=== PATIENT | male | born 1990 | race Caucasian/White ===

== ENCOUNTER 2024-10-12 20:25 | Emergency (ER) | payer MEDICAID, SELFPAY ==
[2024-10-12 20:27] VITALS: BMI 23.0
[2024-10-12 20:55] VITALS: BP 121/74; PULSE 79; RESP 20; TEMP 37.2; O2SAT 99
--- NOTE | 2024-10-12 21:07 | XR_ITS ---
Examination: CT abdomen and pelvis without contrast. Coronal 3-D reconstructions. Sagittal 2-D reconstructions. Date and time of exam:October 12, 2024 1138 hours INDICATIONS: Onset left-sided flank pain today CTDI: vol (mGy): 6.72 DLP: (mGycm): 398 Technique: Axial images of the abdomen have been obtained, 3 mm slice thickness Intravenous contrast material has not been administered. Low dose protocols were performed. One or more of the following dose reduction techniques were used; automated exposure control, adjustment of the mA and/or KV according to patient size, use of iterative reconstruction technique. Findings: No focal liver or splenic lesions Contracted gallbladder No pancreatic or adrenal mass No renal or ureteral calculi 10 mm posterior left probable renal cyst Aorta normal size Small lymph nodes in the mesentery in the lower right abdomen Normal appendix Urinary bladder wall thickening up to 7 mm No prostatomegaly IMPRESSION: No renal or ureteral calculi, no hydronephrosis Normal appendix No bladder calculi Bladder wall thickening up to 7 mm, consider cystitis
[2024-10-12 21:59] LABS: Basophils # (Auto) 0.1 Thou/mm3 (0.0-0.2); Basophils % (Auto) 1 % (0-2.5); Eosinophils # (Auto) 0.1 Thou/mm3 (0.0-0.5); Eosinophils % (Auto) 1 % (0-10); Hematocrit 38.7 % (41.0-53.0); Hemoglobin 13.7 g/dL (13.5-16.0); Immature Granulocytes Auto 0.04 Thou/mm3 (0.00-0.00); Lymphocytes # (Auto) 1.8 Thou/mm3 (1.0-4.8); Lymphocytes % (Auto) 17 % (10-50); Mean Corpuscular HGB Conc 35.4 g/dl (31.0-37.0); Mean Corpuscular Hemoglobin 30.0 pg (25.0-35.0); Mean Corpuscular Volume 85 fL (80-100); Monocytes # (Auto) 1.5 Thou/mm3 (0.0-0.8); Monocytes % (Auto) 14 % (0-12); Neutrophils # (Auto) 7.3 Thou/mm3 (1.8-7.7); Neutrophils % (Auto) 67 % (37-80); Nucleated Red Blood Cell # 0.00 Thou/mm3 (0.00-0.00); Nucleated Red Blood Cell % 0 /100 WBC (0); Platelet Count 216 Thou/mm3 (140-440); RDW Standard Deviation 38.5 fL (35.1-43.9); Red Blood Count 4.56 Miln/mm3 (4.50-5.90); White Blood Count 10.9 Thou/mm3 (3.8-10.6)
[2024-10-12 22:20] LABS: Collection Type, Urine Clean Catch
[2024-10-12 22:35] LABS: Alanine Aminotransferase 20 U/L (10-49); Albumin, Serum 4.8 gm/dL (3.5-5.0); Albumin/Globulin Ratio 1.7 (1.2-2.2); Alkaline Phosphatase 35 U/L (46-116); Anion Gap 10 (7-16); Aspartate Amino Transferase 29 U/L (0-34); BUN/Creatinine Ratio 9 Ratio (12-20); Bilirubin,Total 0.8 mg/dL (0.3-1.2); Blood Urea Nitrogen 10 mg/dL (9-23); Calcium 9.2 mg/dL (8.3-10.6); Calcium (Corrected) 9.2 mg/dL (8.5-10.1); Carbon Dioxide 29.4 mMol/L (20.0-31.0); Chloride 105 mMol/L (98-107); Creatinine (Component) 1.1 mg/dL (0.6-1.3); Estimated Creatinine Clearance 100.2 mL/min (>60); Globulin 2.8 gm/dL (2.3-3.5); Glucose 87 mg/dL (74-106); Lipase 32 U/L (12-53); Osmolality,Calculated 284 (275-295); Potassium 4.5 mMol/L (3.4-5.1); Sodium 144 mMol/L (136-145); Total Protein 7.6 gm/dL (5.7-8.2); eGFR > 60 See Note
[2024-10-12 23:04] LABS: Bilirubin,Urine Negative (Negative); Blood,Urine Negative (Negative); Clarity,Urine Clear (Clear/Hazy); Color,Urine Yellow (Lt Yel-Yel); Glucose, Urine Negative (Negative); Ketones,Urine Negative (Negative); Leukocyte Esterase,Urine Negative (Negative); Nitrite,Urine Negative (Negative); PH,Urine 6.0 (5.0-7.0); Protein,Urine Negative (Neg - Trace); RBC,Urine 6 /hpf (0-3); Specific Gravity,Urine 1.024 (1.001-1.035); Squamous Epithelial Cell,Urine < 1 /hpf (0-5); Urobilinogen,Urine Negative mg/dL (0.0-1.0); WBC,Urine 2 /hpf (0-5)
--- NOTE | 2024-10-12 23:38 | PD.EDRME ---
Rapid Medical Screening Exam RME Arrival date/time: 10/12/24 20:25 This is a case of 34-year-old male who came into the emergency room due to left flank pain radiating to the left lower abdomen for 1 week worsening of the symptoms today this patient decided to sought consult here in the emergency room Chief Complaint: Abdominal Pain Time Seen by Provider: 10/12/24 20:31 Vital signs: Vital Signs Temperature 98.9 F 10/12/24 20:55 Pulse Rate 79 10/12/24 20:55 Respiratory Rate 20 10/12/24 20:55 Blood Pressure 121/74 10/12/24 20:55 Pulse Oximetry (%) 99 10/12/24 20:55 Oxygen Delivery Method Room Air 10/12/24 20:55
--- NOTE | 2024-10-13 01:08 | EDNOTE_ITS ---
ED Abdominal Pain RME/HPI General Chief Complaint: Abdominal Pain Stated complaint: L FLANK PAIN Time seen by provider: 10/12/24 20:31 Arrival date/time: 10/12/24 20:25 This is a case of 34-year-old male who came into the emergency room due to left flank pain radiating to the left lower abdomen for 1 week worsening of the symptoms today this patient decided to sought consult here in the emergency room Limitations: no limitations RME / HPI RME / HPI narrative: 10/12/24 20:25 This is a case of 34-year-old male who came into the emergency room due to left flank pain radiating to the left lower abdomen for 1 week worsening of the symptoms today this patient decided to sought consult here in the emergency room Related Data Previous Rx's ?Medication ?Instructions ?Recorded hydrocodone 5 mg-acetaminophen 325 1 tab PO BID PRN pa in #10 tabs 07/08/20 mg tablet ibuprofen 800 mg tablet 800 mg PO TID PRN pain #30 t abs 07/08/20 tramadol 37.5 mg-acetaminophen 325 1 tab PO TID PRN pa in #20 tabs 08/23/20 mg tablet (Ultracet) diphenhydramine HCl 25 mg capsule 25 mg PO Q8H PRN all ergic symptoms 06/24/21 (Benadryl) #30 caps baclofen 10 mg tablet 10 mg PO BID PRN muscle spas m #10 10/13/24 tabs cephalexin 500 mg capsule 500 mg PO QID #40 caps 10/13 ondansetron 4 mg disintegrating 4 mg PO Q6H PRN nausea and 10/13/24 tablet vomiting #20 tabs tramadol 50 mg tablet 50 mg PO Q6H PRN pain #14 ta bs 10/13/24 Allergies Allergy/AdvReac Type Severity Reaction Status Date / Time No Known Allergies Allergy Verified 10/12/24 20:31 Review of Systems Review of Systems Systems Reviewed: All systems reviewed, normal except as documented Constitutional Constitutional: Reports system reviewed and no additional complaints, except as documented and Reports as per HPI Cardiovascular Cardiovascular: Reports system reviewed and no additional complaints, except as documented and Reports as per HPI Gastrointestinal Gastrointestinal: Reports system reviewed and no additional complaints, except as documented and Reports as per HPI Musculoskeletal Musculoskeletal: Reports system reviewed and no additional complaints, except as documented and Reports as per HPI Neurologic Neurologic: Reports system reviewed and no additional complaints, except as documented and Reports as per HPI Past Medical History Past Medical History CARDIAC: Negative Congestive Heart Failure RESPIRATORY: Negative Chronic Obstructive Pulmonary Disease (COPD) GENITOURINARY: Negative Renal Disease ENDOCRINE: Negative Diabetes Mellitus Type 1 or Diabetes Mellitus Type 2 Social History SMOKING STATUS: Current some day smoker ED Exam General Limitations: Present no limitations General appearance: Present alert and in no apparent distress Head Head exam: Present atraumatic Eye Eye exam: Present normal appearance, PERRL and EOMI ENT ENT exam: Present normal exam, normal oropharynx and mucous membranes moist Neck Neck exam: Present normal inspection, full ROM and trachea midline; Absent tenderness, meningismus, lymphadenopathy or thyromegaly Chest Chest inspection: Present normal inspection and symmetric chest wall rise; Absent tenderness, rash or abscess Respiratory Respiratory exam: Present normal lung sounds bilaterally Cardiovascular Cardiovascular exam: Present regular rate, normal rhythm and normal heart sounds; Absent bradycardia, tachycardia, irregular rhythm, systolic murmur or diastolic murmur Abdominal Exam Abdominal exam: Present soft, tenderness (Mild tenderness on the left flank and suprapubic area), normal bowel sounds and other (No CVA tenderness); Absent distention, guarding, rebound, rigidity, diminished bowel sounds, hypoactive bowel sounds, organomegaly, trauma, obturator sign, Rovsing's sign, tenderness at McBurney's Point, pulsatile mass or hernia Abdominal tenderness: Present suprapubic Extremities Exam Extremities exam: Present normal inspection and full ROM Back Exam Back exam: Present normal inspection and full ROM; Absent tenderness, CVA tenderness (R), CVA tenderness (L), muscle spasm, paraspinal tenderness, vertebral tenderness, sciatic notch tenderness (R), sciatic notch tenderness (L) or straight leg raise (L) Neurological Exam Neurological exam: Present alert, oriented X3, CN II-XII intact, normal gait and reflexes normal; Absent motor sensory deficit Psychiatric Psychiatric exam: Present normal affect and normal mood Skin Skin exam: Present warm, dry, intact and normal color Course Quality Measures none Orders Category Date Time Status CT abdomen pelvis wo con Stat Exams 10/12/24 21:07 Completed CBC Stat Lab 10/12/24 21:35 Completed Comprehensive Metabolic Panel Stat Lab 10/12/24 21:35 Completed Lipase Stat Lab 10/12/24 21:35 Completed Urinalysis Stat Lab 10/12/24 22:00 Completed Ketorolac Inj [Toradol Inj] Med 10/13/24 00:59 Discontinued 30 mg IM X1 ONE Ondansetron Odt [Zofran Odt] Med 10/13/24 00:59 Discontinued 4 mg PO X1 ONE cefTRIAXone [Rocephin] 1,000 mg Med 10/13/24 00:59 Discontinued Lidocaine 1% 20 ml [Xylocaine 1% 20 ML] 2.1 ml IM X1 Vital Signs Vital signs: Vital Signs Temperature 98.9 F 10/12/24 20:55 Pulse Rate 79 10/12/24 20:55 Respiratory Rate 20 10/12/24 20:55 Blood Pressure 121/74 10/12/24 20:55 Pulse Oximetry (%) 99 10/12/24 20:55 Oxygen Delivery Method Room Air 10/12/24 20:55 Oxygen saturation 99% room air Abdominal Pain MDM MDM Narrative MDM Narrative:: This is a case of 34-year-old male who came into the emergency room due to left flank pain radiating to the left lower abdomen for 1 week worsening of the symptoms today this patient decided to sought consult here in the emergency room patient is awake alert oriented not in distress nontoxic looking no signs and symptoms of sepsis dehydration or hypoxia abdominal exam is benign nonsurgical no guarding no rebound mild tenderness on left flank and suprapubic area negative psoas negative straight or negative Rovsing's negative McBurney's negative Eid sign negative CVA tenderness blood test showed no leukocytosis no anemia kidney and liver function is normal lipase is normal urinalysis is normal patient CT scan showed a renal cyst and cystitis patient was given ceftriaxone IM here in the emergency room and Toradol which improved and resolved the pain patient will follow-up with PCP to be referred to urologist for renal cyst and cystitis for any worsening symptoms or any emergent concerns she will return in the emergency room immediately or call 911 Patient was discharged with comfortable condition walking with stable gait. Patient verbalized no further complains explained diagnosis and answered patient question. Patient is comfortable with the proposed management plan including the need to follow up with his/her primary care physician and any specialist if applicable Discussed patient for any urgent condition or worsening sx, He/She needed to go to emergency room immediately or call 911. Patient acknowledge the responsibility to follow up as instructed and to monitor her/his symptoms. For any persistence of the symptoms for more than 3-5 days return precaution advised. Discussed the result of the test and was given printed discharge instruction Patient data External records reviewed:: [facility] previous records Clinical information provided by:: patient Social determinants that could affect healthcare access:: none Patient has the following chronic illnesses:: None How is presenting disease/condition affected by chronic disease/condition?: no chronic disease Evaluation data The following diagnostics were reviewed and interpreted by me:: lab results and radiology exam(s) Lab and/or radiology exams considered but not ordered:: Reviewed Interpretation Summary: Reviewed Medications / Prescriptions Medications or Prescriptions considered but not ordered:: Given Medication administrations:: Medication Administration History Discontinued Medications Ceftriaxone Sodium 1,000 mg/ (Lidocaine HCl 2.1 ml) 0 mg IM X1 ONE Stop: 10/13/24 01:00 Ketorolac Tromethamine (Ketorolac Inj 60 Mg/2 Ml Vial) 30 mg IM X1 ONE Stop: 10/13/24 01:00 Ondansetron HCl (Ondansetron Odt 4 Mg Tabrap) 4 mg PO X1 ONE; Protocol Stop: 10/13/24 01:00 Given Consultations Consultation(s) initiated? (list below): No Diagnosis Differential diagnosis abdominal pain: abdominal pain, acute appendicitis, calculus of kidney and diverticulitis Most likely diagnosis given after review of the tests above:: Cystitis Admission Indicated Admission indicated?: not indicated Explain why admission is indicated or not indicated:: Not indicated Admission Request Was there a request for admission?: No Admission Attestation Admission request attestation: Not indicated Disposition Plan Disposition Plan: Discharge Discharge Attestation Discharge Attestation: The patient and all family members were given an opportunity to ask questions and understood the discharge instructions. Discharge instructions specifically effects, indications for sooner follow up or return to the emergency department, and the expected course of current diagnosis. Patient condition: Stable Discharge Plan Plan Patient Disposition: HOME (Self Care) Patient condition on transfer: Stable Prescriptions/Referrals Prescriptions/Med Rec: New cephalexin 500 mg capsule 500 mg PO QID Qty: 40 0RF ondansetron 4 mg tablet,disintegrating 4 mg PO Q6H PRN (Reason: nausea and vomiting) Qty: 20 0RF tramadol 50 mg tablet 50 mg PO Q6H PRN (Reason: pain) Qty: 14 0RF baclofen 10 mg tablet 10 mg PO BID PRN (Reason: muscle spasm) Qty: 10 0RF No Action ibuprofen 800 mg tablet 800 mg PO TID PRN (Reason: pain) Qty: 30 0RF hydrocodone-acetaminophen 5-325 mg tablet 1 tab PO BID MDD 10 PRN (Reason: pain) Qty: 10 0RF tramadol-acetaminophen [Ultracet] 37.5-325 mg tablet 1 tab PO TID PRN (Reason: pain) Qty: 20 0RF diphenhydramine HCl [Benadryl] 25 mg capsule 25 mg PO Q8H PRN (Reason: allergic symptoms) Qty: 30 0RF Referrals: No Primary/Family,Physician [Primary Care Provider] - In 1 week Problem List Clinical Impression: Abdominal pain, Renal cyst, Cystitis, Back muscle spasm Patient/Caregiver Discharge Instructions Education Materials: Abdominal Pain, Muscle Spasm, Understanding Urinary Tract ..., Healthy Kidneys Additional Instructions: Follow-up with your primary care physician in 2 days for reevaluation and to be referred to urologist for further evaluation and treatment of renal cyst worsening symptoms or any emergent concern call 911 or go to the nearest emergency room take your medication as directed finish the course of antibiotic increase water intake keep hydrated follow-up with your primary care physician to be referred to neurosurgeon for possible MRI toe of lower back to rule out herniated disc and pain management doctor for pain control Print Language: Greek Stand Alone Forms: [employer] Award Info., Patient Portal Info Letter PA/GASTROENTEROLOGY PROFESSOR Supervising Physician PA/GASTROENTEROLOGY PROFESSOR Supervising Physician: dr lee
[2024-10-13] MEDS: cefTRIAXone 1,000 MG, LIDOCAINE 1% 20 ML 2.1 ML IM (01:29)
[2024-10-13] MEDS: KETOROLAC INJ 60 MG/2 ML VIAL 30 MG IM (01:29)
[2024-10-13] MEDS: ONDANSETRON ODT 4 MG TABRAP PO (01:31)
== END 2024-10-13 01:47 | disposition home or self-care (01) ==
PROVIDERS: Nurse Practitioner Family; Emergency Provider Emergency Medicine
DX: N28.1 Cyst of kidney, acquired (principal); N30.90 Cystitis, unspecified without hematuria; M62.830 Muscle spasm of back
CPT/HCPCS: 36415; 74176; 80053; 81001; 83690; 85025; 96372; 99284; J0696; J1885; J3490; Q0162